=== PATIENT | male | born 1980 | race Caucasian/White ===

== ENCOUNTER 2020-10-31 20:24 | Emergency (ER) | payer BC, OTHER ==
[~2020-10-31] VITALS: Ht 66.7 cm; Wt 104.1 kg
[~2020-10-31 20:24] MED LIST: PROM25SU10 PR
--- NOTE | 2020-10-31 20:57 | ED General ---
General Stated Complaint: NUMBNESS IN FACE/HEAD/LEGS Source of Information: Patient Exam Limitations: No Limitations History of Present Illness Date Seen by Provider: Oct 31, 2020 Time Seen by Provider: 20:52 Initial Comments To ER with numbness in his head and face and neck and both legs from the knees down. These began on Tuesday of this week. The symptoms are not always present and they do completely resolve in between episodes of numbness. When he has these episodes of numbness he feels like he is going to "pass away". He feels like his heart is racing and he feels very anxious. [place] [facility] [place] and was referred to the emergency room due to concern of Guillain-Bruno Timing/Duration: 1-2 Days Severity: Moderate Associated Systoms: Headaches Allergies and Home Medications Allergies Coded Allergies: No Known Allergies (Unverified Allergy, Mild, 01/05/09) Home Medications ALPRAZolam 0.25 Mg Tablet, 0.25 MG PO BID PRN for ANXIETY Prescribed by: ANDIE MADRID on 10/31/202128 Promethazine Hcl 25 Mg Supp, 25 MG OH Q 6 HRS PRN FOR NAUSEA AND VOMITING. Prescribed by: HU CORRALES on 01/05/09 1836 Patient Home Medication List Home Medication List Reviewed: Yes Review of Systems Review of Systems Constitutional: see HPI EENTM: see HPI Respiratory: no symptoms reported Cardiovascular: see HPI; No chest pain; palpitations Genitourinary: no symptoms reported Musculoskeletal: no symptoms reported Skin: no symptoms reported Psychiatric/Neurological: No Symptoms Reported Hematologic/Lymphatic: No Symptoms Reported Physical Exam Vital Signs Vital Signs - First Documented 10/31/20 21:09 Temp 36.8 Pulse 84 Resp 18 B/P (MAP) 128/76 (93) Pulse Ox 98 O2 Delivery Room Air Capillary Refill : Height, Weight, BMI Height: '" Weight: lbs. oz. kg; BMI Method: General Appearance: No Apparent Distress, WD/WN, Other (He had a laboratory evaluation done yesterday [place] [facility] showing a normal vitamin B12 level, a normal hemoglobin A1c of 5.9. He takes no medications daily. He had a normal CBC and normal CMP.) Eyes: Bilateral Eye Normal Inspection, Bilateral Eye PERRL, Bilateral Eye EOMI HEENT: PERRL/EOMI, TMs Normal Respiratory: No Accessory Muscle Use, No Respiratory Distress Cardiovascular: Regular Rate, Rhythm, Normal Peripheral Pulses Gastrointestinal: Non Tender, Soft Extremity: Normal Capillary Refill, Normal Inspection, Other (Strength in all extremities is 5 out of 5. Both legs where he reports the numbness from the knees down are normal in appearance with normal hair distribution. They are both warm to the touch and with a strong posterior tibial pulse. Patellar reflex 2+ bilat) Neurologic/Psychiatric: Alert, Oriented x3 Skin: Normal Color, Warm/Dry Progress/Results/Core Measures Suspected Sepsis SIRS Temperature: Pulse: Respiratory Rate: Laboratory Tests 10/31/20 21:00: White Blood Count 8.7 Blood Pressure / Mean: Laboratory Tests 10/31/20 21:00: Creatinine 1.03, Platelet Count 333, Total Bilirubin 0.2 Results/Orders Lab Results Laboratory Tests Test 10/31/20 21:00 10/31/20 21:09 Range/Units White Blood Count 8.7 4.3-11.0 10^3/uL Red Blood Count 4.93 4.30-5.52 10^6/uL Hemoglobin 14.1 13.3-17.7 g/dL Hematocrit 45 40-54 % Mean Corpuscular Volume 91 80-99 fL Mean Corpuscular Hemoglobin 29 25-34 pg Mean Corpuscular Hemoglobin Concent 32 32-36 g/dL Red Cell Distribution Width 13.1 10.0-14.5 % Platelet Count 333 130-400 10^3/uL Mean Platelet Volume 10.3 9.0-12.2 fL Immature Granulocyte % (Auto) 0 % Neutrophils (%) (Auto) 56 42-75 % Lymphocytes (%) (Auto) 35 12-44 % Monocytes (%) (Auto) 8 0-12 % Eosinophils (%) (Auto) 1 0-10 % Basophils (%) (Auto) 1 0-10 % Neutrophils # (Auto) 4.9 1.8-7.8 10^3/uL Lymphocytes # (Auto) 3.0 1.0-4.0 10^3/uL Monocytes # (Auto) 0.7 0.0-1.0 10^3/uL Eosinophils # (Auto) 0.1 0.0-0.3 10^3/uL Basophils # (Auto) 0.0 0.0-0.1 10^3/uL Immature Granulocyte # (Auto) 0.0 0.0-0.1 10^3/uL Sodium Level 141 135-145 MMOL/L Potassium Level 4.2 3.6-5.0 MMOL/L Chloride Level 106 98-107 MMOL/L Carbon Dioxide Level 24 21-32 MMOL/L Anion Gap 11 5-14 MMOL/L Blood Urea Nitrogen 17 7-18 MG/DL Creatinine 1.03 0.60-1.30 MG/DL Estimat Glomerular Filtration Rate > 60 BUN/Creatinine Ratio 17 Glucose Level 92 70-105 MG/DL Calcium Level 9.4 8.5-10.1 MG/DL Corrected Calcium 9.2 8.5-10.1 MG/DL Total Bilirubin 0.2 0.1-1.0 MG/DL Aspartate Amino Transf (AST/SGOT) 23 5-34 U/L Alanine Aminotransferase (ALT/SGPT) 27 0-55 U/L Alkaline Phosphatase 93 40-136 U/L Total Protein 8.0 6.4-8.2 GM/DL Albumin 4.3 3.2-4.5 GM/DL Urine Color YELLOW Urine Clarity CLEAR Urine pH 8.0 5-9 Urine Specific [place] 1.015 L 1.016-1.022 Urine Protein NEGATIVE NEGATIVE Urine Glucose (UA) NEGATIVE NEGATIVE Urine Ketones NEGATIVE NEGATIVE Urine Nitrite NEGATIVE NEGATIVE Urine Bilirubin NEGATIVE NEGATIVE Urine Urobilinogen 0.2 < = 1.0 MG/DL Urine Leukocyte Esterase NEGATIVE NEGATIVE Urine RBC (Auto) NEGATIVE NEGATIVE Urine RBC NONE /HPF Urine WBC NONE /HPF Urine Crystals NONE /LPF Urine Bacteria NEGATIVE /HPF Urine Casts NONE /LPF Urine Mucus NEGATIVE /LPF Urine Culture Indicated NO My Orders Orders - ANDIE MADRID APRN Ct Head Wo (10/31/20 20:51) Cbc With Automated Diff (10/31/20 20:51) Comprehensive Metabolic Panel (10/31/20 20:51) Ua Culture If Indicated (10/31/20 20:51) Ed Iv/Invasive Line Start (10/31/20 20:51) Alprazolam Tablet (Xanax Tablet) (10/31/20 21:00) Ns Iv 1000 Ml (Sodium Chloride 0.9%) (10/31/20 21:15) Medications Given in ED Current Medications Medications Dose Ordered Sig/Aakash Route Start Time Stop Time Status Last Admin Dose Admin Alprazolam 0.25 mg ONCE ONCE PO 4/23/21 21:00 10/31/20 21:01 DC 10/31/20 21:09 0.25 MG Vital Signs/I&O 10/31/20 21:09 Temp 36.8 Pulse 84 Resp 18 B/P (MAP) 128/76 (93) Pulse Ox 98 O2 Delivery Room Air Capillary Refill : Departure Impression Primary Impression: Anxiety Disposition: HOME, SELF-CARE Condition: Stable Departure-Patient Inst. Decision time for Depature: 21:29 Referrals: CECI JADE MD (PCP) Primary Care Physician Patient Instructions: Anxiety, Adult (DC) Add. Discharge Instructions: 1. Whenever you feel 1 of these symptoms take one of the medicines prescribed to help you relax. You can take this medicine up to twice a day. Do not drive or operate heavy equipment after taking 1 of these pills. Scripts ALPRAZolam (ALPRAZolam) 0.25 Mg Tablet 0.25 MG PO BID PRN for ANXIETY, #10 TAB Prov: ANDIE MADRID APRN 10/31/20 ANDIE MADRID APRN Oct 31, 2020 20:57
[2020-10-31] MEDS ORDERED: ALPRAZolam 0.25 MG (XANAX) TAB PO ONE (21:00)
[2020-10-31 21:09] LABS: BASOPHILS % (AUTO) 1 % (0-10); EOSINOPHILS # (AUTO) 0.1 10^3/uL (0.0-0.3); EOSINOPHILS % (AUTO) 1 % (0-10); HEMATOCRIT 45 % (40-54); HEMOGLOBIN 14.1 g/dL (13.3-17.7); LYMPHOCYTES % (AUTO) 35 % (12-44); MEAN CORPUSCULAR HEMOGLOBIN 29 pg (25-34); MEAN CORPUSCULAR HGB CONC 32 g/dL (32-36); MEAN CORPUSCULAR VOLUME 91 fL (80-99); MEAN PLATELET VOLUME 10.3 fL (9.0-12.2); MONOCYTES # (AUTO) 0.7 10^3/uL (0.0-1.0); MONOCYTES % (AUTO) 8 % (0-12); NEUTROPHILS # (AUTO) 4.9 10^3/uL (1.8-7.8); NEUTROPHILS % (AUTO) 56 % (42-75); PLATELET COUNT 333 10^3/uL (130-400); WHITE BLOOD COUNT 8.7 10^3/uL (4.3-11.0)
[2020-10-31] MEDS ORDERED: NS IV 1000 ML 1,000 ML IV SCH (21:15)
[2020-10-31 21:22] LABS: BILIRUBIN,URINE NEGATIVE (NEGATIVE); CLARITY,URINE CLEAR; COLOR,URINE YELLOW; GLUCOSE, URINE (UA) NEGATIVE (NEGATIVE); KETONES,URINE NEGATIVE (NEGATIVE); LEUKOCYTE ESTERASE ,URINE NEGATIVE (NEGATIVE); NITRITE,URINE NEGATIVE (NEGATIVE); PROTEIN,URINE NEGATIVE (NEGATIVE)
[2020-10-31 21:25] LABS: ALANINE AMINOTRANSFERASE 27 U/L (0-55); ALBUMIN 4.3 GM/DL (3.2-4.5); ALKALINE PHOSPHATASE 93 U/L (40-136); BILIRUBIN,TOTAL 0.2 MG/DL (0.1-1.0); BUN/CREATININE RATIO 17; CALCIUM 9.4 MG/DL (8.5-10.1); CARBON DIOXIDE 24 MMOL/L (21-32); CHLORIDE 106 MMOL/L (98-107); CREATININE SERUM 1.03 MG/DL (0.60-1.30); GFR ESTIMATED > 60; GLUCOSE 92 MG/DL (70-105); POTASSIUM 4.2 MMOL/L (3.6-5.0); SODIUM 141 MMOL/L (135-145)
[2020-10-31 21:26] LABS: BACTERIA,URINE NEGATIVE /HPF
[2020-10-31] MEDS ORDERED: ALPR0.254 PO (21:29)
--- NOTE | 2020-10-31 21:37 | Diagnostic Imaging Report ---
PROCEDURE: CT head without contrast. TECHNIQUE: Multiple contiguous axial images were obtained through the brain without the use of intravenous contrast. Auto Exposure Controls were utilized during the CT exam to meet ALARA standards for radiation dose reduction. INDICATION: Head pain. COMPARISON: None. FINDINGS: There is no hemorrhage, hydrocephalus, edema, mass, mass effect or evidence for an elevation of the intracerebral pressures. The basilar cisterns are patent. There is no sulcal effacement. The orbits, sinuses and calvarium appear nonacute with some lobular membrane thickening in the maxillary's and a few ethmoid air cells. No air-fluid level. IMPRESSION: Mild chronic paranasal sinus membrane thickening. Normal appearance of the brain. No acute appearing abnormality. Dictated by: Dictated on workstation # [id number]
[2020-10-31] MEDS ORDERED: IBUPROFEN 800 MG (MOTRIN) TAB PO ONE (22:00)
[2020-10-31] MEDS ORDERED: ACETAMINOPHEN 500 MG TAB (TYLENOL) PO ONE (22:00)
[2020-10-31 22:05] VITALS: BP 115/73
== END 2020-10-31 22:05 | disposition home or self-care (01) ==
LOC: EDUNIT# 20:24 → ER 20:27
DX: F41.9 Anxiety disorder, unspecified (principal)
CPT/HCPCS: 36415; 70450; 80053; 81000; 85025